=== PATIENT | female | born 1955 | race Caucasian/White ===

== ENCOUNTER 2023-06-17 10:08 | Outpatient (AMB) | payer OTHER, BC, SELFPAY ==
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
[2023-06-17 10:10] VITALS: BP 130/70; PULSE 80; TEMP 36.4; O2SAT 99; BMI 20.2
== END 2023-06-17 12:12 | disposition home or self-care (01) ==
PROVIDERS: Visit Provider Nurse Practitioner Family
DX: S20.219A Contusion of unspecified front wall of thorax, initial encounter (principal)
CPT/HCPCS: 99203

== ENCOUNTER 2023-06-17 10:34 | Outpatient (REF) | payer BC, SELFPAY ==
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
== END 2023-06-17 10:35 | disposition home or self-care (01) ==
LOC: HO.HMGCX 10:34
PROVIDERS: Visit Provider Nurse Practitioner Family
DX: S20.219A Contusion of unspecified front wall of thorax, initial encounter (principal)
CPT/HCPCS: 71046

== ENCOUNTER 2023-06-23 15:00 | Emergency (ER) | payer OTHER, BC, SELFPAY ==
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
[2023-06-23 15:37] VITALS: BP 114/57; PULSE 74; RESP 18; TEMP 36.4; O2SAT 98; BMI 19.7
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
[2023-06-23 17:28] LABS: MANUAL DIFF FLAG NO
[2023-06-23 17:36] LABS: Appearance Urine Clear; Color Urine Yellow; Glucose Urine UA Negative (Negative); Leukocyte Esterase Urine Negative (Negative); Nitrite Urine Negative (Negative); Specific Gravity - Urine 1.025 (1.005-1.025); UMIC TRIGGER UACC YES; Urine Blood Negative (Negative); Urine Ketones Negative (Negative); Urine Protein 30 (1+) mg/dL (Neg-Trace)
[2023-06-23 17:44] LABS: Bacteria Urine Trace (None Seen); Hyaline Casts Urine 0-2 /LPF (0-2); UACC Culture Trigger YES
[2023-06-23 17:45] LABS: INTERNATIONAL NORM RATIO 0.9 (0.9-1.1); Prothrombin Time 10.6 SEC (11.1-13.3)
[2023-06-23 17:47] LABS: Partial Thromboplastin Time 27.8 SEC (26.0-36.8)
[2023-06-23 17:49] LABS: Alanine Aminotransferase 11 U/L (0-31); Albumin Level 3.9 g/dL (3.5-5.0); Alkaline Phosphatase 140 U/L (39-117); Anion Gap 13 (12-20); Aspartate Amino Transferase 18 U/L (5-31); Bilirubin Direct 0.2 mg/dL (0.0-0.5); Bilirubin Total 0.3 mg/dL (0.0-1.0); Blood Urea Nitrogen 20 mg/dL (9-16); Calcium 9.6 mg/dL (8.4-10.2); Carbon Dioxide 29 mmol/L (22-29); Chloride 100 mmol/L (96-108); Creatinine Clr Calc Pharmacy 50.2; Estimated Glomerular Filt Rate > 60; Glucose Random 88 mg/dL (60-115); Lipase 17 U/L (8-78); Magnesium 1.7 mg/dL (1.6-2.6); Potassium 2.4 mmol/L (3.3-5.1); Sodium 140 mmol/L (135-145); Total Protein 7.2 g/dL (6.5-8.0)
[2023-06-23 17:50] LABS: Basophils Absolute Auto 0.1 X10*3/uL (0.0-0.2); Basophils Percent Auto 0.4 % (0-2); Eosinophils Absolute Auto 0.2 X10*3/uL (0.0-0.4); Eosinophils Percent Auto 1.3 % (0-4); Hematocrit 32.8 % (37.0-47.0); Hemoglobin 10.2 g/dl (12.0-16.0); Imm Gran Abs Auto 0.06 X10*3/uL (0.00-0.03); Imm Gran Pct Auto 0.4 % (0.0-0.4); Lymphocytes Absolute Auto 2.2 X10*3/uL (1.2-4.9); Lymphocytes Percent Auto 15.5 % (20-40); Mean Corpuscular HGB Conc 31.1 g/dl (31.0-35.0); Mean Corpuscular Hemoglobin 22.6 pg (27.0-33.0); Mean Corpuscular Volume 72.7 fL (80.0-98.0); Mean Platelet Volume 8.8 fL (9.4-12.3); Monocytes Absolute Auto 0.9 X10*3/uL (0.1-1.2); Neutrophils Absolute Auto 10.9 x10*3/uL (2.0-8.3); Neutrophils Percent Auto 76.4 % (45-73); Platelet Count 812 X10*3/uL (160-400); Red Blood Count 4.51 X10*6/uL (4.20-5.50); Red Cell Distribution Width 19.1 % (11.0-16.0); White Blood Count 14.2 X10*3/uL (4.8-10.8)
[2023-06-23 17:55] LABS: RBC Urine 0-2 /HPF (0-2)
--- NOTE | 2023-06-23 17:55 | ECG_ITS ---
Test Reason : HYPOKALEMIA Blood Pressure : / mmHG Vent. Rate : 091 BPM Atrial Rate : 091 BPM P-R Int : 152 ms QRS Dur : 092 ms QT Int : 376 ms P-R-T Axes : 081 076 071 degrees QTc Int : 462 ms Normal sinus rhythm Nonspecific ST abnormality Abnormal ECG No previous ECGs available Referred By: Honey Araya Electronically Signed By:Unruly Boyd
[2023-06-23] MEDS: iohexoL 350 MG/ML 100 ML INFUS..BTL IV (18:09)
[2023-06-23] MEDS: Potassium Chloride Packet 20 MEQ PACKET 40 MEQ PO (18:39)
[2023-06-23] MEDS: Potassium Chloride/H20 10 MEQ/100 ML PIGGYBACK 100 MEQ IV ×4 (18:43→23:21)
[2023-06-23 19:12] LABS: Troponin-I High Sensitivity 4.2 ng/L (<3.5-17.0)
[2023-06-23 20:10] VITALS: BP 165/58; PULSE 78; RESP 19; TEMP 36.6; O2SAT 97
[2023-06-23] MEDS: Potassium Chloride ER 20 MEQ TAB.ER.PRT 40 MEQ PO (20:31)
[2023-06-23 20:46] LABS: Troponin-I High Sensitivity 2.8 ng/L (<3.5-17.0)
[2023-06-23 22:21] VITALS: BP 214/82; PULSE 77; RESP 18; O2SAT 94
[2023-06-23] MEDS: oxyCODONE HCl Immed Release 5 MG TABLET PO (22:45)
[2023-06-23] MEDS: 0.9 % Sodium Chloride 250 ML IVCONT (23:23)
--- NOTE | 2023-06-23 23:23 | PC.NURSE ---
this rn assumed care of pt. pt resting in stretcher, no acute distress noted. IV potassium continuing at this time.
[2023-06-23 23:42] VITALS: BP 211/76; PULSE 78; RESP 16; TEMP 36.7; O2SAT 93
[2023-06-23 23:42] LABS: Anion Gap 14 (12-20); Blood Urea Nitrogen 16 mg/dL (9-16); Calcium 9.1 mg/dL (8.4-10.2); Carbon Dioxide 27 mmol/L (22-29); Chloride 102 mmol/L (96-108); Creatinine Clr Calc Pharmacy 56.3; Estimated Glomerular Filt Rate > 60; Glucose Random 97 mg/dL (60-115); Potassium 3.5 mmol/L (3.3-5.1); Sodium 139 mmol/L (135-145)
--- NOTE | 2023-06-23 23:47 | PC.NURSE ---
nurse to nurse report given to Florian LICONA at [facility].
--- NOTE | 2023-06-23 23:49 | PC.NURSE ---
ems at bedside to transport pt.
[2023-06-23 23:50] VITALS: BP 211/76; PULSE 78; RESP 16; TEMP 36.7; O2SAT 93
== END 2023-06-23 23:51 | disposition short-term general hospital (02) ==
PROVIDERS: Nurse Practitioner Family; Physician Assistant; Physician Assistant Medical; Emergency Provider Emergency Medicine Emergency Medical Services
DX: S22.42XA Multiple fractures of ribs, left side, initial encounter for closed fracture (principal); E87.6 Hypokalemia; R94.31 Abnormal electrocardiogram [ECG] [EKG]; R10.2 Pelvic and perineal pain; R07.81 Pleurodynia; M54.50 Low back pain, unspecified; R10.9 Unspecified abdominal pain; V43.52XA Car driver injured in collision with other type car in traffic accident, initial encounter; Y93.9 Activity, unspecified; Y92.410 Unspecified street and highway as the place of occurrence of the external cause; Y99.8 Other external cause status; Z79.899 Other long term (current) drug therapy
CPT/HCPCS: 36415; 71260; 74177; 80048; 80076; 81001; 83690; 83735; 84484; 85025; 85610; 85730; 87086; 93005; 96365; 96366; 99285; J3480; Q9967

== ENCOUNTER → 2023-06-23 17:55 | Outpatient (BNV) | payer BC, SELFPAY | PROVIDERS: Emergency Provider Emergency Medicine Emergency Medical Services; Visit Provider Internal Medicine Cardiovascular Disease | DX: R94.31 Abnormal electrocardiogram [ECG] [EKG] (principal) | CPT/HCPCS: 93010 ==